=== PATIENT | female | born 1985 | race Caucasian/White ===

== ENCOUNTER 2019-05-07 10:30 | Emergency (ER) | payer BC, SELFPAY ==
--- NOTE | ~2019-05-07 | XR_ITS ---
EXAMINATION: XR knee RT 3V DATE: 05/07/2019 11:02 INDICATION: Right knee pain TECHNIQUE: Three views of the right knee were obtained. COMPARISON: None. FINDINGS: Alignment is normal. No fracture or osteochondral lesion. Joint spaces are normal with no e rosions. No joint effusion/synovitis. There is soft tissue swelling medial to the knee. IMPRESSION: 1. Medial soft tissue swelling without acute osseous abnormality. Reviewed, dictated and finalized at location B.
--- NOTE | ~2019-05-07 | XR_ITS ---
EXAMINATION: XR femur RT min 2V INDICATION: Right leg pain TECHNIQUE: Two views of the right femur are obtained on four radiographs. COMPARISON: None available FINDINGS: There is no fracture, dislocation, or subluxation. The bones and joint spaces are normal. T here is medial soft tissue swelling adjacent to the knee. IMPRESSION: 1. Soft tissue swelling without acute osseous abnormality. Reviewed, dictated and finalized at location B.
[2019-05-07 10:39] VITALS: BP 125/74; PULSE 92; RESP 22; O2SAT 98
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
--- NOTE | 2019-05-07 10:47 | PC.NURSE ---
pt to xray via stretcher.
--- NOTE | 2019-05-07 11:32 | PC.NURSE ---
Ordered Knee Immobilizer does not fit pt, used Edmundo Wrap. Distal pulse WNL.
[2019-05-07 12:04] VITALS: BP 138/75; PULSE 78; RESP 16; O2SAT 100
== END 2019-05-07 12:05 | disposition home or self-care (01) ==
PROVIDERS: Emergency Provider Emergency Medicine; PCP Emergency Medicine
DX: S83.91XA Sprain of unspecified site of right knee, initial encounter (principal); V03.10XA Pedestrian on foot injured in collision with car, pick-up truck or van in traffic accident, initial encounter
CPT/HCPCS: 73552; 73562; 99284

== ENCOUNTER 2019-07-14 11:10 | Outpatient (CLI) | payer BC, SELFPAY ==
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
== END 2019-07-14 11:11 | disposition home or self-care (01) ==
PROVIDERS: PCP Emergency Medicine; Visit Provider Emergency Medicine
DX: S09.90XA Unspecified injury of head, initial encounter (principal); X58.XXXA Exposure to other specified factors, initial encounter
CPT/HCPCS: 70450; 70486

== ENCOUNTER 2020-02-08 15:47 | Outpatient (CLI) | payer BC, SELFPAY ==
[2020-02-08 16:09] LABS: Basophils Percent Auto 0.2 % (0.2-1.2); Eosinophils Absolute Auto 0.1 K/mm3 (0-0.3); Eosinophils Percent Auto 0.7 % (0-4.4); Hematocrit 40.6 % (37.0-47.0); Hemoglobin 13.8 g/dL (12.0-15.0); Immature Granulocyte Absolute 0.03 K/mm3 (0.00-0.031); Immature Granulocyte Percent A 0.3 % (0-0.5); Lymphocytes Absolute Auto 3.34 K/mm3 (0.9-3.2); Lymphocytes Percent Auto 37.2 % (18.3-44.2); Mean Corpuscular Hemoglobin 32.2 pg (26-34); Mean Corpuscular Volume 94.6 fl (80-100); Monocytes Absolute Auto 0.5 K/mm3 (0.1-0.6); Monocytes Percent Auto 5.2 % (2.6-8.5); Neutrophils Absolute Auto 5.1 K/mm3 (1.3-6.7); Neutrophils Percent Auto 56.4 % (45.5-73.1); Red Blood Count 4.29 M/mm3 (4.2-5.4); Red Cell Distribution Width 12.3 % (11.5-14.5)
[2020-02-08 16:14] LABS: Platelet Count Result 200 k/mm3 (150-375)
[2020-02-08 17:05] LABS: Iron 122 ug/dL (37-170)
[2020-02-08 17:07] LABS: Potassium 4.1 mmol/L (3.4-5.0)
[2020-02-08 17:15] LABS: Percent Iron Saturation 34 % (20-50)
[2020-02-08 17:23] LABS: Alanine Aminotransferase 23 U/L (4-35); Albumin Level 4.2 g/dL (3.5-5.1); Alkaline Phosphatase 73 U/L (38-126); Anion Gap 8 mmol/L (8-16); Aspartate Amino Transferase 36 U/L (14-36); Blood Urea Nitrogen 10 mg/dL (7-17); Calcium 9.4 mg/dL (8.4-10.2); Carbon Dioxide 28 mmol/L (22-30); Chloride 102 mmol/L (98-107); Estimated Glomerular Filt Rate > 60; Glucose 105 mg/dL (65-105); Sodium 138 mmol/L (137-145)
[2020-02-08 18:12] LABS: Folic Acid 14.5 ng/mL (2.76->20)
== END 2020-02-08 15:48 | disposition home or self-care (01) ==
LOC: ANHLAB 15:48
PROVIDERS: PCP Emergency Medicine; Visit Provider Internal Medicine Hematology & Oncology
DX: D69.59 Other secondary thrombocytopenia (principal)
CPT/HCPCS: 36415; 80053; 82607; 82728; 82746; 83540; 83550; 85025

== ENCOUNTER 2020-02-14 08:36 | Outpatient (CLI) | payer BC, SELFPAY ==
--- NOTE | ~2020-02-14 | US_ITS ---
US abdomen complete EXAMINATION: US Abdomen Complete INDICATION: Thrombocytopenia. PROCEDURE: Realtime High Resolution abdomen ultrasound. COMPARISON: No prior studies for comparison FINDINGS: Gallbladder within normal limits. No gallstones, pericholecystic fluid, gallbladder wall t hickening or biliary dilatation. Common bile duct measures 4.4 mm. Liver echotexture is increased, consistent with fatty infiltration.. Pancreas within normal limits. Pancreatic tail is obscured by bowel gas. Spleen is unremarkeable. Renal echotexture is within norm al limits bilaterally without hydronephrosis, contour deforming mass or renal stone. Right kidney patria sures 10.4 cm. Left kidney measures 9.5 cm. Visualized aspects of the aorta and IVC are within normal limits. Portal vein is patent. No sonograph ic Serna's sign indicated by the technologist. IMPRESSION: 1: Fatty infiltration of the liver. Reviewed, dictated and finalized at location A. ERY MACHINIST
== END 2020-02-14 08:37 | disposition home or self-care (01) ==
PROVIDERS: PCP Emergency Medicine; Visit Provider Internal Medicine Hematology & Oncology
DX: D69.59 Other secondary thrombocytopenia (principal); K76.0 Fatty (change of) liver, not elsewhere classified
CPT/HCPCS: 76700

== ENCOUNTER 2020-12-30 01:03 | Day surgery (SDC) | payer BC, SELFPAY ==
[2020-12-26 11:45] VITALS: BMI 33.2
--- NOTE | 2020-12-26 11:55 | PC.NURSE ---
Report to the Outpatient Waiting Room, entrance under the green pavilion located off [facility], at time 0730 on date 12/30/20. OR Time: 0930. - You and your visitor will be asked a series of questions to screen for COVID 19 for your protection. - A mask is required within the hospital. - Only one visitor is allowed at this time. Patient visitors will be guided where to wait when not with patient. Preoperative COVID Testing Requirements: No COVID Test needed if: (proof is required; if not received patient will have Rapid Test prior to entry) - Patient has received COVID Vaccine at least 14 days prior to procedure date or - Patient has positive COVID test result within last 90 days of surgery date. COVID Test needed if above criteria is not met If not COVID vaccinated a COVID test must be conducted within 72 hours of surgery and patient is asked to isolate self from time of testing until procedure. You will go to the [employer] [facility] for your COVID testing. The [employer] [facility] site is located at the corner of [address] [facility]. You will only be called if COVID results are positive and your surgeon may reschedule your elective surgery date. Patients may have clear liquids (water, carbonated beverages, clear teas, apple juice) until 3 hours prior to surgery with a maximum of 20 ounces. - No food from midnight until time of surgery - Infants may have breast milk until 4 hours before surgery, infant formula 6 hours prior to surgery. - Children will be allowed to drink immediately following surgery. If applicable, please bring a bottle or sippy cup to assist with drinking. Juice, water, soda, and popsicles are readily available. For infants on formula, please bring formula the day of surgery. Pacifiers are allowed. Take the following medications with a SIP of water the morning of surgery: N/A Medications to discontinue per physician: VITAMINS Date to take last dose: 12/27/20 Please no make-up, nail croatian, hairspray, perfume, deodorant, or body powder the day of surgery. No jewelry (including any body piercings) or valuables the day of surgery, leave them at home. Please take a shower or bath the night before, or the morning of, surgery with an antibacterial soap. Wear comfortable, loose fitting clothing. Children are encouraged to wear pajamas. - Jewelry must be removed prior to entering the operating room. Rings and piercings that are not removed may be cut off. - The hospital will not accept responsibility for valuables. - Please leave all valuables, including medications, at home the day of surgery. If you are going home after surgery, a licensed truck driver helper must drive you home. - NO public transportation without another adult. - We recommend that an adult stay with you for 24 hours following discharge. - We also recommend that you do not drive, make important decision, drink alcoholic beverages, or take any drugs that were not prescribed by your health care provider for at least 24 hours after your discharge time. For Pediatric surgeries, we recommend two adults accompany the child home (only one inside the building at this time). Follow any additional instructions given to you from your surgeon. Telephone instructions given to VAL GONZALEZ and asked if any additional questions and then verbalized understanding. Patient advised to call surgeon office or pre surgery nurse liaison [phone] if any additional questions.
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
[2020-12-30] VITALS (8 sets, daily range): BP systolic 103–129; BP diastolic 67–74; PULSE 62–95; RESP 10–16; TEMP 36.2–36.4; O2SAT 99–100
--- NOTE | 2020-12-30 07:10 | WPDHPUPDATE1 ---
History and Physical Update Update Date/Time: 12/30/20 07:10 History and Physical has been reviewed, including an updated exam of the patient. There are NO changes in the patient's condition. Risks, benefits, and alternatives have been discussed and questions answered. Patient agrees to proceed with procedure.
--- NOTE | 2020-12-30 07:52 | ECG_ITS ---
Measurements Intervals [place] Rate: 53 P: 39 [place]: 147 QRS: 8 QRSD: 101 T: 21 QT: 407 QTc: 383 Interpretive Statements SINUS BRADYCARDIA BORDERLINE ECG Electronically Signed On 12-30-2020 10:27:15 [employer] by Minor Boles D.O.
[2020-12-30] MEDS: LACTATED RINGERS 1,000 ML 30 ML IV CONT ×2 (08:22→10:56)
[2020-12-30] MEDS: KETOROLAC 15 MG/ML VIAL (*BKC) IV PUSH (08:23)
[2020-12-30] MEDS: ACETAMINOPHEN 500 MG TABLET 1000 MG PO (08:23)
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
[2020-12-30] MEDS: KETOROLAC 30 MG/ML VIAL (*BKC) 15 MG IV PUSH (09:50)
--- NOTE | 2020-12-30 10:07 | W.PM.PROC2 ---
Procedure Note - Detailed Date of Procedure 12/30/20 Pre-op Diagnosis right ovarian mass, pain Post-op Diagnosis same Procedure Performed Laparoscopic right salpingo-oophorectomy with lysis of adhesions Surgeon Eliseo Villalta MD Anesthesia general Indications 35-year-old female status post hysterectomy with the complex right ovarian cyst and pain Findings Absent uterus. Complex right ovarian cyst. Pelvic adhesions Description of Procedure The patient was prepped draped in the normal sterile fashion placed in dorsal lithotomy position. Under excellent general endotracheal anesthesia weighted speculum placed in posterior fornix vagina. Sponge stick was placed in the vagina the cervix was surgically absent. Bladder draining clear urine and the weighted speculum removed. Gloves were changed An infraumbilical incision made the Veress needle passed in the abdomen. The abdomen filled with CO2 gas to 15 Hg. Patient placed in Trendelenburg and a suprapubic incision made. The 5mm trocar advanced under direct visual holding. A right lower quadrant incision made old and the 10mm trocar advanced under direct visualization assuring no injury. Multiple adhesions were seen. The these were sharply dissected using monopolar cautery and the and a tug and pull method. Complex right ovarian cyst was seen in the infundibulopelvic structure was skeletonized. This was clamped, burned, cut. In the ovary and tube placed in Endo-Catch removed through the right lower quadrant incision. Irrigation undertaken until clear and the incisions were noted to be clean dry and intact. The gas removed from the abdomen and the trocars removed from the abdomen. The incisions closed with 4 Monocryl and glue and the patient was awakened. All sponge, needle, instrument counts were correct. There were no immediate complications Estimated Blood Loss 5 Drains No Packing No Pathology yes Complications No immediate complications Condition stable Disposition PACU
[2020-12-30] MEDS: fentaNYL CITRATE INJ (*CRX) 100 MCG/2 ML VIAL 25 MCG IV PUSH ×4 (10:33→10:52)
[2020-12-30] MEDS: oxyCODONE HCL (*CRX) 5 MG TAB IR PO (11:46)
== END 2020-12-30 12:25 | disposition home or self-care (01) ==
PROVIDERS: PCP Emergency Medicine; Visit Provider Obstetrics & Gynecology
PROC: (CPT 49320; principal; 2020-12-30 09:30)
DX: N83.291 Other ovarian cyst, right side (principal); R10.2 Pelvic and perineal pain; N73.6 Female pelvic peritoneal adhesions (postinfective)
CPT/HCPCS: 58661; 36415; 86850; 86900; 86901; 88305; 93005; A9270; J0330; J1100; J1885; J2250; J2405; J2704; J3010; J7120

== ENCOUNTER 2021-02-06 19:31 | Emergency (ER) | payer BC, SELFPAY ==
[2021-02-06 19:44] VITALS: BP 133/93; PULSE 83; RESP 20; TEMP 36.3; O2SAT 100
[2021-02-06 21:29] VITALS: BP 129/74; PULSE 80; RESP 18; TEMP 36.6; O2SAT 99
--- NOTE | 2021-02-06 22:16 | PC.NURSE ---
Pt exits ED prior to being seen. No sign of any kind of distress.
== END 2021-02-07 00:43 | disposition left against medical advice (07) ==
LOC: ANHED 22:22
PROVIDERS: PCP Emergency Medicine
DX: R11.10 Vomiting, unspecified (principal)
CPT/HCPCS: 99199

== ENCOUNTER 2021-05-13 17:15 | Emergency (ER) | payer SELFPAY ==
--- NOTE | ~2021-05-13 | XR_ITS ---
EXAMINATION: XR chest 2V DATE: 05/13/2021 18:21 INDICATION: Cough and wheezing. Fever. TECHNIQUE: Frontal and lateral views of the chest were obtained. COMPARISON: Chest 2 views 01/28/2009 FINDINGS: The chest demonstrates clear lungs without pneumonia, pleural effusion, or pneumothorax. Th e heart size is normal. IMPRESSION: 1. No acute cardiopulmonary disease. Reviewed, dictated and finalized at location E.
[2021-05-13 17:21] VITALS: BP 129/81; PULSE 73; RESP 16; TEMP 36.3; O2SAT 100
--- NOTE | 2021-05-13 18:13 | ED.GENADULT ---
HPI - General Adult General Chief complaint: Unspecified Stated complaint: head congestion, body aches, low grade fevers Time Seen by Provider: 05/13/21 17:29 History of Present Illness HPI narrative: Patient is a 36-year-old female with no pertinent past medical history who presents with 3 weeks of rhinorrhea, productive cough, body aches, and generalized malaise. She reports some wheezing today and reports some pain under her ribs due to cough. Patient states her whole family is sick at home with similar symptoms. Patient expresses concern over longevity of symptoms, but states her symptoms have not gotten worse in nature. She is vaccinated against Covid and flu. She denies any chest pain, shortness of breath, leg swelling, hemoptysis. Over the past 3 days patient additionally has been experiencing intermittent epigastric discomfort, described as a cramp. She has also been feeling nauseous, and has had 3 episodes of vomiting nonbloody nonbilious emesis. States she last ate a burger and fries for lunch and has been tolerating p.o. since vomiting today. Smokes marijuana. Related Data Home Medications Medication Instructions Recorded Confirmed lisinopril 10 mg PO DAILY 12/26/20 12/30/20 Allergies Allergy/AdvReac Type Severity Reaction Status Date / Time No Known Allergies Allergy Unknown Verified 05/13/21 17:41 Review of Systems Review of Systems: Gen.: Denies fevers or chills Eyes: Denies eye pain or visual change ENT: Reports sinus congestion, cough. Respiratory: Denies shortness of breath or cough CV: Denies chest pain or palpitations GI: Reports abdominal pain, nausea, and vomiting. Denies diarrhea denies burning, urgency, frequency or hematuria Musculoskeletal: Denies back pain or muscle pain Neuro: Denies numbness, tingling, weakness or focal weakness Skin: Denies rash Except as documented, all other systems reviewed and negative All systems reviewed & are unremarkable except as noted in HPI and below PMFSH Past Medical History Medical History (Updated 05/14/21 @ 00:00 by Edmar Mccormack) Anal fissure Anemia Anxiety Asthma Back pain Depression Endometriosis Melena Obesity Ovarian cyst UTI (urinary tract infection) Surgical History Surgical History History of hysterectomy Hx of section Hx of dilation and curettage Hx of tubal ligation Family History Family History Mother Asthma Family history of arthritis Family history of malignant neoplasm of cervix Grandparent Family history of chronic obstructive pulmonary disease Family history of congestive heart failure Diabetes mellitus Social History Social History Smoking status: Never smoker Alcohol intake: current Alcohol use details: 6 Substance use: current Substance use type: marijuana Other substance usage details: SMOKE Last use: 12/26/20 Gender identity (if verbalized by the patient): Female Sexual Orientation (if Verbalized by the Patient): Straight or Heterosexual Spiritual care concerns: No Exam Narrative: APPEARANCE: Well appearing, no pain in distress, well-nourished. Head normocephalic atraumatic. EYES: PERRLA/EOMI, conjunctivae very clear. NOSE: Normal no drainage THROAT: Pharynx clear, no exudate. NECK: Supple. No adenopathy, no masses. RESPIRATORY: No audible wheezing. Airway patent, respirations nonlabored. Clear to auscultation bilaterally, no rales, rhonchi, wheezing. CARDIOVASCULAR: Regular rate and rhythm without murmurs rubs or gallops. ABDOMINAL: Mild tenderness to palpation in epigastric region with some guarding. Soft, no rebound tenderness. MUSCULOSKELETAl: Moves all extremities. Strength/ROM intact, No edema, No calf tenderness. NEURO: Alert. Cranial nerves II through XII intact. Good gait. Good coordinat
[2021-05-13] MEDS: ONDANSETRON HCL ODT 4 MG TABLET PO (18:21)
[2021-05-13 18:24] LABS: Basophils Percent Auto 0.2 % (0.2-1.2); Eosinophils Absolute Auto 0.1 K/mm3 (0-0.3); Eosinophils Percent Auto 0.8 % (0-4.4); Hematocrit 39.4 % (37.0-47.0); Hemoglobin 13.8 g/dL (12.0-15.0); Immature Granulocyte Absolute 0.03 K/mm3 (0.00-0.031); Immature Granulocyte Percent A 0.3 % (0-0.5); Lymphocytes Absolute Auto 4.91 K/mm3 (0.9-3.2); Mean Corpuscular Hemoglobin 32.3 pg (26-34); Mean Corpuscular Volume 92.3 fl (80-100); Mean Platelet Volume 12.7 fl (7.4-10.4); Monocytes Absolute Auto 0.5 K/mm3 (0.1-0.6); Monocytes Percent Auto 5.5 % (2.6-8.5); Neutrophils Absolute Auto 3.9 K/mm3 (1.3-6.7); Neutrophils Percent Auto 41.2 % (45.5-73.1); Platelet Count Result 154 k/mm3 (150-375); Red Blood Count 4.27 M/mm3 (4.2-5.4); White Blood Count 9.4 K/mm3 (4.5-10.0)
[2021-05-13 18:34] LABS: Alanine Aminotransferase 22 U/L (4-35); Albumin Level 4.4 g/dL (3.5-5.1); Alkaline Phosphatase 73 U/L (38-126); Anion Gap 5 mmol/L (8-16); Aspartate Amino Transferase 29 U/L (14-36); Bilirubin,Total 0.5 mg/dL (0.2-1.3); Blood Urea Nitrogen 13 mg/dL (7-17); Calcium 8.8 mg/dL (8.4-10.2); Carbon Dioxide 25 mmol/L (22-30); Chloride 105 mmol/L (98-107); Estimated CRCL calculation 84 ml/min; Estimated Glomerular Filt Rate > 60; Glucose 102 mg/dL (65-110); Lipase 87 U/L (23-300); Potassium 4.1 mmol/L (3.4-5.0); Sodium 135 mmol/L (137-145)
[2021-05-13 19:15] LABS: Influenza A QL RT-PCR Negative (Negative); Influenza B QL RT-PCR Negative (Negative); SARS-CoV-2 RNA PCR Negative
[2021-05-13 19:17] VITALS: BP 118/80; PULSE 50; RESP 16; O2SAT 99
--- NOTE | 2021-05-13 19:19 | PC.NURSE ---
Assumed care of pt at this time. Pt alert and upright on stretcher. Reports nausea has improved with medication. Pt and family updated on POC.
== END 2021-05-13 19:38 | disposition home or self-care (01) ==
PROVIDERS: Physician Assistant; Emergency Provider Emergency Medicine; PCP Emergency Medicine
DX: J06.9 Acute upper respiratory infection, unspecified (principal); R11.2 Nausea with vomiting, unspecified; Z20.822 Contact with and (suspected) exposure to COVID-19; Z86.2 Personal history of diseases of the blood and blood-forming organs and certain disorders involving the immune mechanism; J45.909 Unspecified asthma, uncomplicated; Z87.440 Personal history of urinary (tract) infections; E66.9 Obesity, unspecified; Z68.31 Body mass index [BMI] 31.0-31.9, adult
CPT/HCPCS: 36415; 71046; 80053; 83690; 85025; 87502; 99283; A9270; C9803; U0003; U0005

== ENCOUNTER 2022-12-13 21:31 | Emergency (ER) | payer OTHER, BC, SELFPAY ==
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
[2022-12-13 21:31] VITALS: BP 148/87; PULSE 77; RESP 18; TEMP 36.6; O2SAT 100
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
[2022-12-13] MEDS: KETOROLAC 30 MG/ML VIAL (*BKC) IM (22:33)
== END 2022-12-13 22:45 | disposition home or self-care (01) ==
PROVIDERS: Emergency Provider Physician Assistant; PCP Emergency Medicine
DX: S83.91XA Sprain of unspecified site of right knee, initial encounter (principal); J45.909 Unspecified asthma, uncomplicated; E66.9 Obesity, unspecified; Z87.440 Personal history of urinary (tract) infections; Z86.2 Personal history of diseases of the blood and blood-forming organs and certain disorders involving the immune mechanism; Z90.710 Acquired absence of both cervix and uterus; V49.40XA Driver injured in collision with unspecified motor vehicles in traffic accident, initial encounter
CPT/HCPCS: 73564; 96372; 99283; J1885